=== PATIENT | male | born 1970 | race Caucasian/White ===

== ENCOUNTER 2019-06-23 03:32 | Emergency (ER) | payer OTHER ==
[~2019-06-23] VITALS: Ht 177.8 cm; Wt 137.4 kg
[2019-06-23] MEDS ORDERED: CIPRO500 MG PO (15:31)
[2019-06-23] MEDS ORDERED: PEPCID AC20 MG PO (15:31)
[2019-06-23] MEDS ORDERED: FLAGYL500MG PO (15:31)
[2019-06-23] MEDS ORDERED: INTESTINEX680 M1 PO (15:31)
== END 2019-06-23 16:35 | disposition home or self-care (01) ==
LOC: ER 03:32
DX: R19.7 Diarrhea, unspecified (principal); M54.5 Low back pain

== ENCOUNTER 2020-06-22 16:39 | Emergency (ER) | payer OTHER ==
[~2020-06-22] VITALS: Ht 177.8 cm; Wt 131.5 kg
[~2020-06-22 16:39] MED LIST: CIPRO500 MG PO; FLAGYL500MG PO; INTESTINEX680 M1 PO; PEPCID AC20 MG PO
[2020-06-22] MEDS ORDERED: AMOXICILLIN875 MG PO (16:59)
== END 2020-06-22 19:14 | disposition home or self-care (01) ==
LOC: ER 16:39
DX: H65.02 Acute serous otitis media, left ear (principal)